=== PATIENT | female | born 1970 | race Caucasian/White ===

== ENCOUNTER 2016-08-21 11:22 | Outpatient (CLI) | payer MEDICARE ==
[~2016-08-21] VITALS: Ht 170.2 cm; Wt 63.5 kg
[~2016-08-21 11:22] MED LIST: ALPR1T PO; ALPR2TAB2 PO; AMIT25TA9 PO; BACL10TA PO; BPR150TCR PO; BUPR200T PO; DCS100C PO; DICL75TA2 PO; DICY20TA57 PO; ESTR0.3T PO; ESTR1TAB24 PO; FLUO20CA42 PO; FLUO40CA PO; GBPN300C PO; HYDR118S10 PO; HYDR1TAB86 PO; HYDR50CA3 PO; Hydrocodone Bit/Acetaminophen PO; IBP600T1 PO; LINE600T5 PO; METO-333 PO; METO-354 PO; METO10TA3 PO; NAPR-248 PO; NORE5TAB5 PO; OXYC-12 PO; PANT20TA2 PO; POLY17PO23 GT; PRD20T PO; SUCR1TAB23 PO; SULF1TAB35 PO; TRAM50TA2 PO; TRAZ150T42 PO
[2016-08-21 11:58] VITALS: BP 120/95
[2016-08-21] MEDS ORDERED: BUP/EPI 0.5% 1:200,000 (SENSORCAINE) 30 ML VIAL ONE (12:11)
[2016-08-21 12:29] VITALS: BP 110/82
--- NOTE | 2016-08-21 14:56 | Pain Medicine-Procedure ---
Procedure Pre-Op/Post-Op Diagnosis Diagnosis: complex regional pain syndrome Indications for Operation leg pain Attending Surgeon [place] Procedure Date of Service: Aug 21, 2016 PROCEDURE: Right L3 Sympathetic Nerve Block under fluoroscopic guidance PROCEDURE: After obtaining an informed consent from the patient, the patient's chart was reviewed. The patient was brought to the procedure room and placed in a prone position. A time out was performed. The L3 vertebral level was identified on the right side in the oblique view and then 2 mL of 1% Lidocaine was used to anesthetize the skin. A 22 gauge 5 inch spinal needle was inserted under fluoroscopic guidance lateral to the transverse process ofL3 on the right side until the needle was positioned in front of [id number]. After needle aspiration, 3 ml of contrast dye was injected and showed good spread of the contrast material in the region of the sympathetic chain on the right side at L3. After negative aspiration (negative for CSF, blood and paraesthesia), 80 mg of Kenalog was injected followed by 8 ml of 0.5 percent bupivacaine with epinephrine with repeated negative aspiration throughout the injection. No increase in heart rate was noted and the patient denied signs of local anesthetic toxicity The patient tolerated the procedure well. The needle was flushed with preservative free 1% lidocaine and removed, and a Band-Aide was applied. The patient tolerated the procedure well and was taken to the recovery area in stable condition. Patient was discharged to home in stable condition with no new neurologic deficits. Complications none EDUARDO NÚÑEZ MD Aug 21, 2016 2:56 pm
== END 2016-08-21 12:32 | disposition home or self-care (01) ==
LOC: CARD 11:22
PROVIDERS: ATTEND Pain Medicine Pain Medicine
DX: G90.59 Complex regional pain syndrome I of other specified site (principal); M47.816 Spondylosis without myelopathy or radiculopathy, lumbar region
CPT/HCPCS: 64520